=== PATIENT | male | born 1955 ===

== ENCOUNTER 2020-08-06 21:00 | Inpatient (IN) | payer MEDICARE ==
[2020-08-07] MEDS ORDERED: HALOPERIDOL LACTATE 5 MG/1 ML INJ IM ONE (05:30)
[2020-08-07] MEDS ORDERED: LORazepam 2 MG/ML VIAL IM ONE (05:30)
[2020-08-07] MEDS ORDERED: HALOPERIDOL LACTATE 5 MG/1 ML INJ ONE ×2 (05:31)
[2020-08-07] MEDS ORDERED: LORazepam 2 MG/ML VIAL ONE ×2 (05:31→05:33)
[2020-08-07] MEDS: metFORMIN 500 MG TAB PO SCH (20:33)
[2020-08-07] MEDS: DONEPEZIL 5 MG TAB PO SCH (21:32)
[2020-08-07] MEDS: traZODone 100 MG TAB PO SCH (21:33)
[2020-08-07] MEDS: clonazePAM 0.5 MG TAB PO SCH (21:33)
[2020-08-07] MEDS: OXcarbazepine 300 MG TAB PO SCH (21:50)
[2020-08-08 06:22] LABS: Basophils % (Auto) 0.7 % (0.0-1.8); Eosinophils # (Auto) 0.1 K/mm3 (0.0-0.4); Eosinophils % (Auto) 2.5 % (0.0-4.3); Hematocrit 36.3 % (35.5-45.6); Hemoglobin 12.9 gm/dl (11.8-15.2); Lymphocytes # (Auto) 1.7 K/mm3 (1.2-5.4); Lymphocytes % (Auto) 31.6 % (13.4-35.0); Mean Corpuscular HGB Conc 36 % (32-34); Mean Corpuscular Volume 99 fl (84-94); Monocytes # (Auto) 0.6 K/mm3 (0.0-0.8); Monocytes % (Auto) 10.5 % (0.0-7.3); Platelet Count 144 K/mm3 (140-440); Red Blood Count 3.65 M/mm3 (3.65-5.03); Red Cell Distribution Width 13.8 % (13.2-15.2)
[2020-08-08 06:46] LABS: Alanine Aminotransferase 9 units/L (7-56); Albumin 3.6 g/dL (3.9-5); Blood Urea Nitrogen 7 mg/dL (9-20); Calcium 9.2 mg/dL (8.4-10.2); Chol/HDL Ratio 4.56 %; HDL Cholesterol 37 mg/dL (40-59); Hemolysis Index 6; LDL Cholesterol,Direct 109 mg/dL (50-130)
[2020-08-08 06:47] LABS: BUN/Creatinine Ratio 12
[2020-08-08] MEDS: PROPRANOLOL 10 MG TAB PO SCH (10:34)
[2020-08-08] MEDS: metFORMIN 500 MG TAB PO SCH ×2 (10:34→16:54)
[2020-08-08] MEDS: clonazePAM 0.5 MG TAB PO SCH ×2 (10:34→21:06)
[2020-08-08] MEDS: SERTRALINE 100 MG TAB PO SCH (10:34)
[2020-08-08] MEDS: amLODIPine 10 MG TAB PO SCH (10:38)
[2020-08-08] MEDS: OXcarbazepine 300 MG TAB PO SCH ×2 (10:39→21:06)
--- NOTE | 2020-08-08 13:48 | History and Physical Report ---
GP History & Physical - History of Present Illness Date of admission: 08/07/20 Date of Examination: 08/08/20 Reason for Admission: Danger to self, Failure of Outpatient Treatment History of Present Illness: Sebastián Ny is a 64y/o male patient who was admitted to [facility] for a possible overdose and getting into an altercation with his family. The nurse note states the patient was with mild anxiety upon admission and expressed suicidal thoughts with no plan. During my interview with the patient, he is smiling. He says he was brought here because he "felt suicidal." When asked was he suicidal at present, the patient says "at times." He denies hallucinations of any kind. He denies any illicit drug use, alcohol or nicotine. The patient says he was diagnosed with depression in the past. He also denies a suicide attempt in the past. PAST PSYCHIATRIC HISTORY: Diagnoses: Depression Suicide attempts or Self-harm behavior: denies Prior psychiatric hospitalizations: [facility] Substance Abuse history: denies Previous psychiatric medications tried: zoloft Outpatient treatment: yes PAST MEDICAL HISTORY: HTN Family Psychiatric History: None reported or documented SOCIAL HISTORY Marital Status: Living Arrangements: family Employment Status: disable Access to guns/weapons: no Education: History of Abuse: denies Legal History: yes REVIEW OF SYSTEMS Constitutional: Negative for weight loss ENT: Negative for stridor Respiratory: Negative for cough or hemoptysis All other systems reviewed and are negative MENTAL STATUS General Appearance and Behavior: age appropriate, good eye contact, cooperative with questioning and polite Cooperation: Cooperative Psychomotor Behavior: within normal limits Mood: okay Affect and affective range: Congruent with stated mood Thought Process: Fluent/Logical and Goal-directed Thought Content: Within reality Speech: Normal volume and Regular rate and rhythm Intellectual Functioning: Average Suicidal Ideation: "at times" Homicidal Ideation: Denies HI Impulse Control: intact Insight and Judgment: Limited Memory/Cognition: Limited Attention: Normal Orientation: alert and oriented Diagnoses: schizoaffective Disorder, Bipolar Type Treatment Plan Patient will be admitted for inpatient psychiatric evaluation, medication adjustment and close monitoring The patient's behavior, mood, sleep and appetite will be closely monitored. Patient will be enrolled in individual and group therapeutic sessions and encouraged to attend. Patient will be provided with a safe and structured environment. Patient's physical health needs will be addressed by the Hospitalist. Hospitalist Consulted Labs including CBC, CMP, Lipid profile and Hemoglobin A1C ordered Social Assessment will be completed and the Sign Builder will work with patient and family to ensure a suitable and safe disposition Medication adjustment will be made as clinically indicated Usual Wellness Sikh/Preservation: - Start Melatonin 5 mg po QHS to promote circadian rhythm - Start B1 prophylaxis with 200 mg po for 5 days The patient agreed on the treatment plan, understood the risk, benefit, alternative treatment, potential consequence of no treatment, and gave informed consent. This is an acknowledgement statement that Sebastián Ny is a 64y/o male who requires inpatient psychiatric admission for treatment which could reasonably be expected to improve the patient's condition for irritability, aggression, and suicidal ideation. Estimated period of time patient will need to remain in the hospital: [7] Plan for post-hospital care: [out-patient] Legal Status: Voluntary Reaction to Hospitalization: Accepting Medications and Allergies Allergies Allergy/AdvReac Type Severity Reaction Status Date / Time No Known Allergies Allergy Unverified 08/07/20 17:15 Home Medications Medication Instructions Recorded Confirmed Last Taken Type KlonoPIN 0.5 mg PO BID 08/07/20 08/07/20 Unknown History Trileptal 300 mg PO BID 08/07/20 08/07/20 Unknown History Zoloft 100 mg PO DAILY 08/07/20 08/07/20 Unknown History amLODIPine 10 mg PO DAILY 08/07/20 08/07/20 Unknown History donepeziL 5 mg PO HS 08/07/20 08/07/20 Unknown History metFORMIN 1,000 mg PO BID 08/07/20 08/07/20 Unknown History propranoloL 30 mg PO DAILY 08/07/20 08/07/20 Unknown History traZODone 100 mg PO HS 08/07/20 08/07/20 Unknown History Active Meds: Active Medications Amlodipine Besylate (Amlodipine) 10 mg PO DAILY [facility] Last Admin: 08/08/20 10:38 Dose: 10 mg Documented by: Clonazepam (Klonopin) 0.5 mg PO BID [facility] Last Admin: 08/08/20 10:34 Dose: 0.5 mg Documented by: Donepezil HCl (Aricept) 5 mg PO QHS [facility] Last Admin: 08/07/20 21:32 Dose: 5 mg Documented by: Metformin HCl (Glucophage) 1,000 mg PO BIDDIAB [facility] Last Admin: 08/08/20 10:34 Dose: 1,000 mg Documented by: Oxcarbazepine (Trileptal) 300 mg PO BID [facility] Last Admin: 08/08/20 10:39 Dose: 300 mg Documented by: Propranolol HCl (Inderal) 30 mg PO DAILY [facility] Last Admin: 08/08/20 10:34 Dose: 30 mg Documented by: Sertraline HCl (Zoloft) 200 mg PO DAILY [facility] Last Admin: 08/08/20 10:34 Dose: 200 mg Documented by: Trazodone HCl (Desyrel) 100 mg PO QHS [facility] Last Admin: 08/07/20 21:33 Dose: 100 mg Documented by: Results - Results Labs/Vitals: Laboratory Last Values WBC 5.5 K/mm3 (4.5-11.0) 08/08/20 06:06 RBC 3.65 M/mm3 (3.65-5.03) 08/08/20 06:06 Hgb 12.9 gm/dl (11.8-15.2) 08/08/20 06:06 Hct 36.3 % (35.5-45.6) 08/08/20 06:06 MCV 99 fl (84-94) H 08/08/20 06:06 MCH 35 pg (28-32) H 08/08/20 06:06 MCHC 36 % (32-34) H 08/08/20 06:06 RDW 13.8 % (13.2-15.2) 08/08/20 06:06 Plt Count 144 K/mm3 (140-440) 08/08/20 06:06 Lymph % (Auto) 31.6 % (13.4-35.0) 08/08/20 06:06 [place] % (Auto) 10.5 % (0.0-7.3) H 08/08/20 06:06 Eos % (Auto) 2.5 % (0.0-4.3) 08/08/20 06:06 Baso % (Auto) 0.7 % (0.0-1.8) 08/08/20 06:06 Lymph # (Auto) 1.7 K/mm3 (1.2-5.4) 08/08/20 06:06 [place] # (Auto) 0.6 K/mm3 (0.0-0.8) 08/08/20 06:06 Eos # (Auto) 0.1 K/mm3 (0.0-0.4) 08/08/20 06:06 Baso # (Auto) 0.0 K/mm3 (0.0-0.1) 08/08/20 06:06 Seg Neutrophils % 54.7 % (40.0-70.0) 08/08/20 06:06 Seg Neutrophils # 3.0 K/mm3 (1.8-7.7) 08/08/20 06:06 Sodium 142 mmol/L (137-145) 08/08/20 06:06 Potassium 3.5 mmol/L (3.6-5.0) L 08/08/20 06:06 Chloride 104.6 mmol/L (98-107) 08/08/20 06:06 Carbon Dioxide 29 mmol/L (22-30) 08/08/20 06:06 Anion Gap 12 mmol/L 08/08/20 06:06 BUN 7 mg/dL (9-20) L 08/08/20 06:06 Creatinine 0.6 mg/dL (0.8-1.3) L 08/08/20 06:06 Estimated GFR > 60 ml/min 08/08/20 06:06 BUN/Creatinine Ratio 12 % 08/08/20 06:06 Glucose 102 mg/dL (75-100) H 08/08/20 06:06 POC Glucose 100 mg/dL (70-105) 08/08/20 08:45 Hemoglobin A1c 5.0 % (4-6) 08/08/20 06:06 Calcium 9.2 mg/dL (8.4-10.2) 08/08/20 06:06 Total Bilirubin 0.50 mg/dL (0.1-1.2) 08/08/20 06:06 AST 16 units/L (5-40) 08/08/20 06:06 ALT 9 units/L (7-56) 08/08/20 06:06 Alkaline Phosphatase 72 units/L (35-129) 08/08/20 06:06 Total Protein 6.6 g/dL (6.3-8.2) 08/08/20 06:06 Albumin 3.6 g/dL (3.9-5) L 08/08/20 06:06 Albumin/Globulin Ratio 1.2 % 08/08/20 06:06 Triglycerides 163 mg/dL (2-149) H 08/08/20 06:06 Cholesterol 169 mg/dL (50-199) 08/08/20 06:06 LDL Cholesterol Direct 109 mg/dL (50-130) 08/08/20 06:06 HDL Cholesterol 37 mg/dL (40-59) L 08/08/20 06:06 Cholesterol/HDL Ratio 4.56 % 08/08/20 06:06 TSH 2.200 mlU/mL (0.270-4.200) 08/08/20 06:06 Last Vital Signs Temp 97.3 F L 08/07/20 22:00 Pulse 79 08/08/20 10:38 Resp 18 08/07/20 22:00 BP 168/73 08/08/20 10:38 Pulse Ox 95 08/07/20 22:00 Physical Examination - Constitutional Vitals: Vital Signs Temp Pulse Resp BP Pulse Ox 97.3 F L 79 18 168/73 95 08/07/20 22:00 08/08/20 10:38 08/07/20 22:00 08/08/20 10:38 08/07/20 22:00 Temperature -Last 24 Hours Temperature 97.3 F Temperature 97.7 F Mental Status Exam - Vital signs Last Vital Signs Temp 97.3 F L 08/07/20 22:00 Pulse 79 08/08/20 10:38 Resp 18 08/07/20 22:00 BP 168/73 08/08/20 10:38 Pulse Ox 95 08/07/20 22:00 Physician Certification - Certification Statement Physician Certification Statement: This is an acknowledgement statement that SEBASTIÁN NY is a 64 year old M who requires inpatient psychiatric admission for treatment which could reasonably be expected to improve the patient's condition for Estimated period of time patient will need to remain in the hospital: [ ] Plan for post-hospital care: [ ]
[2020-08-08] MEDS: traZODone 100 MG TAB PO SCH (21:06)
[2020-08-08] MEDS: DONEPEZIL 5 MG TAB PO SCH (21:06)
--- NOTE | 2020-08-09 08:30 | Progress Note ---
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 The nurse note states the patient was present for some time but not fully aeb pt pacing unit. pt was encouraged/prompt to join group, but pt refused. pt stated "I have bipolar/anxiety. you all don't understand." During my interview with the patient he is awake in his room. He is a/o x 3. He is calm and cooperative. He says he's here because "I over medicated. Me and my girlfriend had some problems." He denies SI/HI or hallucinations of any kind. Nursing staff states the patient has been pacing, and not engaging in group. Reason for continued inpatient treatment: The patient has a recent suicidal attempt and has poor impulse control. Will continue to treat and monitor closely for effectiveness of medication to ensue a safe discharge. REVIEW OF SYSTEMS Constitutional: Negative for weight loss ENT: Negative for stridor Respiratory: Negative for cough or hemoptysis All other systems reviewed and are negative MENTAL STATUS General Appearance and Behavior: age appropriate, good eye contact, cooperative with questioning and polite Cooperation: Cooperative Psychomotor Behavior: within normal limits Mood: okay Affect and affective range: Congruent with stated mood Thought Process: Fluent/Logical and Goal-directed Thought Content: Within reality Speech: Normal volume and Regular rate and rhythm Intellectual Functioning: Average Suicidal Ideation: Denies Homicidal Ideation: Denies HI Impulse Control: Poor Insight and Judgment: Limited Memory/Cognition: Limited Attention: Normal Orientation: alert and oriented Diagnoses: schizoaffective Disorder, Bipolar Type Treatment Plan Patient will be admitted for inpatient psychiatric evaluation, medication adjustment and close monitoring The patient's behavior, mood, sleep and appetite will be closely monitored. Patient will be enrolled in individual and group therapeutic sessions and encouraged to attend. Patient will be provided with a safe and structured environment. Patient's physical health needs will be addressed by the Hospitalist. Hospitalist Consulted Labs including CBC, CMP, Lipid profile and Hemoglobin A1C ordered Social Assessment will be completed and the Admitting Coordinator will work with patient and family to ensure a suitable and safe disposition Medication adjustment will be made as clinically indicated Risperidone 0.25mg po BID Usual Wellness Pentecostalism/Preservation: - Start Melatonin 5 mg po QHS to promote circadian rhythm - Start B1 prophylaxis with 200 mg po for 5 days The patient agreed on the treatment plan, understood the risk, benefit, alternative treatment, potential consequence of no treatment, and gave informed consent. Estimated period of time patient will need to remain in the hospital: [4] Plan for post-hospital care: [out-patient] Medications and Allergies Allergies Allergy/AdvReac Type Severity Reaction Status Date / Time No Known Allergies Allergy Unverified 08/07/20 17:15 Home Medications Medication Instructions Recorded Confirmed Last Taken Type KlonoPIN 0.5 mg PO BID 08/07/20 08/07/20 Unknown History Trileptal 300 mg PO BID 08/07/20 08/07/20 Unknown History Zoloft 100 mg PO DAILY 08/07/20 08/07/20 Unknown History amLODIPine 10 mg PO DAILY 08/07/20 08/07/20 Unknown History donepeziL 5 mg PO HS 08/07/20 08/07/20 Unknown History metFORMIN 1,000 mg PO BID 08/07/20 08/07/20 Unknown History propranoloL 30 mg PO DAILY 08/07/20 08/07/20 Unknown History traZODone 100 mg PO HS 08/07/20 08/07/20 Unknown History Active Meds: Active Medications Amlodipine Besylate (Amlodipine) 10 mg PO DAILY [facility] Last Admin: 08/08/20 10:38 Dose: 10 mg Documented by: Clonazepam (Klonopin) 0.5 mg PO BID [facility] Last Admin: 08/08/20 21:06 Dose: 0.5 mg Documented by: Donepezil HCl (Aricept) 5 mg PO QHS [facility] Last Admin: 08/08/20 21:06 Dose: 5 mg Documented by: Metformin HCl (Glucophage) 1,000 mg PO BIDDIAB [facility] Last Admin: 08/08/20 16:54 Dose: 1,000 mg Documented by: Oxcarbazepine (Trileptal) 300 mg PO BID [facility] Last Admin: 08/08/20 21:06 Dose: 300 mg Documented by: Propranolol HCl (Inderal) 30 mg PO DAILY [facility] Last Admin: 08/08/20 10:34 Dose: 30 mg Documented by: Sertraline HCl (Zoloft) 200 mg PO DAILY [facility] Last Admin: 08/08/20 10:34 Dose: 200 mg Documented by: Trazodone HCl (Desyrel) 100 mg PO QHS [facility] Last Admin: 08/08/20 21:06 Dose: 100 mg Documented by: Results - Results Labs/Vitals: Laboratory Last Values WBC 5.5 K/mm3 (4.5-11.0) 08/08/20 06:06 RBC 3.65 M/mm3 (3.65-5.03) 08/08/20 06:06 Hgb 12.9 gm/dl (11.8-15.2) 08/08/20 06:06 Hct 36.3 % (35.5-45.6) 08/08/20 06:06 MCV 99 fl (84-94) H 08/08/20 06:06 MCH 35 pg (28-32) H 08/08/20 06:06 MCHC 36 % (32-34) H 08/08/20 06:06 RDW 13.8 % (13.2-15.2) 08/08/20 06:06 Plt Count 144 K/mm3 (140-440) 08/08/20 06:06 Lymph % (Auto) 31.6 % (13.4-35.0) 08/08/20 06:06 [place] % (Auto) 10.5 % (0.0-7.3) H 08/08/20 06:06 Eos % (Auto) 2.5 % (0.0-4.3) 08/08/20 06:06 Baso % (Auto) 0.7 % (0.0-1.8) 08/08/20 06:06 Lymph # (Auto) 1.7 K/mm3 (1.2-5.4) 08/08/20 06:06 [place] # (Auto) 0.6 K/mm3 (0.0-0.8) 08/08/20 06:06 Eos # (Auto) 0.1 K/mm3 (0.0-0.4) 08/08/20 06:06 Baso # (Auto) 0.0 K/mm3 (0.0-0.1) 08/08/20 06:06 Seg Neutrophils % 54.7 % (40.0-70.0) 08/08/20 06:06 Seg Neutrophils # 3.0 K/mm3 (1.8-7.7) 08/08/20 06:06 Sodium 142 mmol/L (137-145) 08/08/20 06:06 Potassium 3.5 mmol/L (3.6-5.0) L 08/08/20 06:06 Chloride 104.6 mmol/L (98-107) 08/08/20 06:06 Carbon Dioxide 29 mmol/L (22-30) 08/08/20 06:06 Anion Gap 12 mmol/L 08/08/20 06:06 BUN 7 mg/dL (9-20) L 08/08/20 06:06 Creatinine 0.6 mg/dL (0.8-1.3) L 08/08/20 06:06 Estimated GFR > 60 ml/min 08/08/20 06:06 BUN/Creatinine Ratio 12 % 08/08/20 06:06 Glucose 102 mg/dL (75-100) H 08/08/20 06:06 POC Glucose 91 mg/dL (70-105) 08/09/20 06:27 Hemoglobin A1c 5.0 % (4-6) 08/08/20 06:06 Calcium 9.2 mg/dL (8.4-10.2) 08/08/20 06:06 Total Bilirubin 0.50 mg/dL (0.1-1.2) 08/08/20 06:06 AST 16 units/L (5-40) 08/08/20 06:06 ALT 9 units/L (7-56) 08/08/20 06:06 Alkaline Phosphatase 72 units/L (35-129) 08/08/20 06:06 Total Protein 6.6 g/dL (6.3-8.2) 08/08/20 06:06 Albumin 3.6 g/dL (3.9-5) L 08/08/20 06:06 Albumin/Globulin Ratio 1.2 % 08/08/20 06:06 Triglycerides 163 mg/dL (2-149) H 08/08/20 06:06 Cholesterol 169 mg/dL (50-199) 08/08/20 06:06 LDL Cholesterol Direct 109 mg/dL (50-130) 08/08/20 06:06 HDL Cholesterol 37 mg/dL (40-59) L 08/08/20 06:06 Cholesterol/HDL Ratio 4.56 % 08/08/20 06:06 TSH 2.200 mlU/mL (0.270-4.200) 08/08/20 06:06 Last Vital Signs Temp 97.3 F L 08/08/20 22:00 Pulse 59 L 08/08/20 22:00 Resp 18 08/08/20 22:00 BP 129/94 08/08/20 22:00 Pulse Ox 95 08/08/20 22:00
[2020-08-09] MEDS: metFORMIN 500 MG TAB PO SCH ×2 (09:00→17:03)
[2020-08-09] MEDS: SERTRALINE 100 MG TAB PO SCH (09:01)
[2020-08-09] MEDS: amLODIPine 10 MG TAB PO SCH (09:01)
[2020-08-09] MEDS: PROPRANOLOL 10 MG TAB PO SCH (09:02)
[2020-08-09] MEDS: clonazePAM 0.5 MG TAB PO SCH ×2 (09:03→21:19)
[2020-08-09] MEDS: OXcarbazepine 300 MG TAB PO SCH ×2 (09:03→21:19)
[2020-08-09] MEDS: risperiDONE 0.25 MG TAB PO SCH ×2 (09:22→21:19)
[2020-08-09] MEDS: LOPERAMIDE 2 MG CAP PO PRN ×2 (17:53→21:18)
--- NOTE | 2020-08-09 18:02 | Consultation ---
History of Present Illness - Reason for Consult Consult date: 08/09/20 medical mx - History of Present Illness Sebastián Ny is a 64y/o male patient with a history of hypertension, diabetes mellitus, COPD who was admitted to [facility] for a possible overdose, feeling suicidal and getting into an altercation with his family. He denies any illicit drug use, alcohol or nicotine. The patient says he was diagnosed with depression in the past. He also denies a suicide attempt in the past. Patient is currently being managed at [facility] psych unit. Hospitalist service has been consulted for medical management. Past medical history: Hypertension, diabetes mellitus type 2 on oral hypoglycemic medications, COPD Past psychiatric history: Depression Past surgical history: right Ankle surgery, bilateral inguinal hernia repair Family history: Significant for congestive heart failure Social history: Lives with family. Positive for remote history of smoking REVIEW OF SYSTEMS Constitutional: no fever, no chills, no weight loss Ears, eyes, nose, mouth and throat: no nasal congestion, no nasal discharge, no sinus pressure, no vision change, no red eye. Neck: No neck pain or rigidity. Cardiovascular: No chest pain, no orthopnea, no palpitations, no leg swelling Respiratory: No shortness of breath, no cough, no congestion, no wheezing Gastrointestinal: no abdominal pain, no nausea, no vomiting Genitourinary : no dysuria, no hematuria Musculoskeletal: no joint swelling or muscle ache Integumentary: no rash, no pruritis Neurological: no parathesias, no numbness, no tingling Endocrine: no cold or heat intolerance, no polyuria or polydipsia Hematologic/Lymphatic: no easy bruising, no easy bleeding, no gland swelling Allergic/Immunologic: no urticaria, no angioedema. Physical exam: GENERAL: well-developed and well-nourished white male without any apparent distress HEENT: Normocephalic. Atraumatic. No conjunctival congestion or icterus. Patient has moist mucous membranes. NECK: Supple. Trachea midline. CHEST/LUNGS: Clear to auscultated bilaterally, breathing nonlabored. No wheezes crackles or rhonchi. HEART/CARDIOVASCULAR: Regular in rate and rhythm. S1 and S2 positive. ABDOMEN: Abdomen is soft, nontender. Patient has normal bowel sounds. SKIN: There is no rash. Warm and dry. NEURO: No focal motor deficit. Follows command. MUSCULOSKELETAL: No joint effusion or tenderness. EXTRIMITY: No edema, no cyanosis or clubbing. PSYCH: Cooperative. Assessment and plan Depression with suicidal ideation -Management per primary Other chronic medical issues: Hypertension, stable Diabetes mellitus type 2 on oral hypoglycemic medications COPD, stable Remote history of tobacco abuse Hypokalemia, replete DVT prophylaxis, patient is ambulatory -Continue current home medications, monitor blood pressure, continue supportive care -Patient appears to be clinically stable -Check BMP before discharge, replete electrolytes as needed -Call us back with any question or concern Medications and Allergies Allergies Allergy/AdvReac Type Severity Reaction Status Date / Time No Known Allergies Allergy Unverified 08/07/20 17:15 Home Medications Medication Instructions Recorded Confirmed Last Taken Type KlonoPIN 0.5 mg PO BID 08/07/20 08/07/20 Unknown History Trileptal 300 mg PO BID 08/07/20 08/07/20 Unknown History Zoloft 100 mg PO DAILY 08/07/20 08/07/20 Unknown History amLODIPine 10 mg PO DAILY 08/07/20 08/07/20 Unknown History donepeziL 5 mg PO HS 08/07/20 08/07/20 Unknown History metFORMIN 1,000 mg PO BID 08/07/20 08/07/20 Unknown History propranoloL 30 mg PO DAILY 08/07/20 08/07/20 Unknown History traZODone 100 mg PO HS 08/07/20 08/07/20 Unknown History Active Meds: Active Medications Amlodipine Besylate (Amlodipine) 10 mg PO DAILY [facility] Last Admin: 08/09/20 09:01 Dose: 10 mg Documented by: Clonazepam (Klonopin) 0.5 mg PO BID [facility] Last Admin: 08/09/20 09:03 Dose: 0.5 mg Documented by: Donepezil HCl (Aricept) 5 mg PO QHS [facility] Last Admin: 08/08/20 21:06 Dose: 5 mg Documented by: Loperamide HCl (Imodium) 2 mg PO Q2H PRN PRN Reason: Diarrhea Last Admin: 08/09/20 17:53 Dose: 2 mg Documented by: Metformin HCl (Glucophage) 1,000 mg PO BIDDIAB [facility] Last Admin: 08/09/20 17:03 Dose: 1,000 mg Documented by: Oxcarbazepine (Trileptal) 300 mg PO BID [facility] Last Admin: 08/09/20 09:03 Dose: 300 mg Documented by: Propranolol HCl (Inderal) 30 mg PO DAILY [facility] Last Admin: 08/09/20 09:02 Dose: 30 mg Documented by: Risperidone (Risperdal) 0.25 mg PO BID [facility] Last Admin: 08/09/20 09:22 Dose: 0.25 mg Documented by: Sertraline HCl (Zoloft) 200 mg PO DAILY [facility] Last Admin: 08/09/20 09:01 Dose: 200 mg Documented by: Trazodone HCl (Desyrel) 100 mg PO QHS [facility] Last Admin: 08/08/20 21:06 Dose: 100 mg Documented by: Exam - Constitutional Vitals: Temp Pulse Resp BP Pulse Ox 98.4 F 63 18 165/71 96 08/09/20 10:00 08/09/20 10:00 08/09/20 10:00 08/09/20 10:00 08/09/20 10:00 Results - Labs CBC & Chem 7: 08/08/20 06:06 08/08/20 06:06
[2020-08-09] MEDS: DONEPEZIL 5 MG TAB PO SCH (21:19)
[2020-08-09] MEDS: traZODone 100 MG TAB PO SCH (21:19)
--- NOTE | 2020-08-10 07:36 | Progress Note ---
Subjective Date of service: 08/10/20 Principal diagnosis: MDD w/o Psychiotic features Subjective Comment: Psych Nurse: Last evening the patient was pleasant and cooperative. He interacted appropriately with his peers and with staff. He presents as mildly anxious and made several trips to the nurses station requesting various things. He was medication compliant. Will continue to monitor patient for safety. Psych Progress HPI Today this morning, patient present with good insight, says the reason he was admitted to this facility was because he had taken a double dose of his usual medications for a time it was attributed to feeling bad today he endorses feeling much better as a matter fact he says her whole lot better, and thus is eating well and sleeping good says he feels like $1 million person even though he knows he can not spend a dime. Patient denies suicidal ideation, denies depressed mood and denies experiencing any auditory or visual hallucinations. Reason for continuing inpatient treatment: We will continue to monitor patient for mood stability and any medication side effects due to new medications Review of Symptoms: Constitutional: Negative for weight loss ENT: Negative for stridor Respiratory: Negative for cough or hemoptysis All other systems reviewed and are negative MENTAL STATUS EXAMINATION General Appearance and Behavior: Age appropriate, good hygiene, wearing appropriate clothes,, good eye contact Cooperation: Participating/engaged Psychomotor Behavior: Psychomotor normal Mood: I feel much better Affect and affective range: Congruent with mood Thought Process: logical Thought Content: Logical within reality Speech: Normal rate, volume and rythm Intellectual Functioning: Average Suicidal Ideation: SI Homicidal Ideation: Denies HI Impulse Control: unimpaired Insight and Judgment: Improved insight and judgment Memory: Normal Attention: Normal Orientation: Alert, Assessment and Plan - Patient Problems (1) MDD (major depressive disorder) Current Visit: Yes Status: Acute Treatment Plan Continue current medication Patient admitted for inpatient psychiatric evaluation, medication adjustment and close monitoring The patient's behavior, mood, sleep and appetite will be closely monitored. Patient enrolled in individual and group therapeutic sessions and encouraged to attend. Patient provided with a safe and structured environment. Patient's physical health needs will be addressed by the Hospitalist. Hospitalist Consulted Labs including CBC, CMP, Lipid profile and Hemoglobin A1C levels ordered for baseline reference Social Assessment will be completed and the Concrete Rubber will work with patient and family to ensure a suitable and safe disposition Medication adjustment will be made as clinically indicated Usual Wellness Jainism/Preservation: - Start Trazodone 50 mg po QHS & 50 mg po QHS PRN between 10 PM & 2 AM for insomnia - Start Melatonin 5 mg po QHS to promote circadian rhythm - Start [place]-3 for brain health, reduce impulsivity, and as adjunctive treatment for mood disorder, continue upon discharge given overall benefits. - Start B1 prophylaxis with 200 mg po for 5 days The patient agreed on the treatment plan, understood the risk, benefit, alternative treatment, potential consequence of no treatment, and gave informed consent. Initial Certification Inpatient psych services: I certify that the inpatient psychiatric services are required for treatment that could reasonably be expected to improve the patient's condition. Estimated days: 5 Post hospital care: primary care provider, psychiatric provider Assessment and Plan - Patient Problems (1) MDD (major depressive disorder) Current Visit: Yes Status: Acute Medications and Allergies Allergies Allergy/AdvReac Type Severity Reaction Status Date / Time No Known Allergies Allergy Unverified 08/07/20 17:15 Home Medications Medication Instructions Recorded Confirmed Last Taken Type KlonoPIN 0.5 mg PO BID 08/07/20 08/07/20 Unknown History Trileptal 300 mg PO BID 08/07/20 08/07/20 Unknown History Zoloft 100 mg PO DAILY 08/07/20 08/07/20 Unknown History amLODIPine 10 mg PO DAILY 08/07/20 08/07/20 Unknown History donepeziL 5 mg PO HS 08/07/20 08/07/20 Unknown History metFORMIN 1,000 mg PO BID 08/07/20 08/07/20 Unknown History propranoloL 30 mg PO DAILY 08/07/20 08/07/20 Unknown History traZODone 100 mg PO HS 08/07/20 08/07/20 Unknown History Active Meds: Active Medications Amlodipine Besylate (Amlodipine) 10 mg PO DAILY [facility] Last Admin: 08/09/20 09:01 Dose: 10 mg Documented by: Clonazepam (Klonopin) 0.5 mg PO BID [facility] Last Admin: 08/09/20 21:19 Dose: 0.5 mg Documented by: Donepezil HCl (Aricept) 5 mg PO QHS [facility] Last Admin: 08/09/20 21:19 Dose: 5 mg Documented by: Loperamide HCl (Imodium) 2 mg PO Q2H PRN PRN Reason: Diarrhea Last Admin: 08/09/20 21:18 Dose: 2 mg Documented by: Metformin HCl (Glucophage) 1,000 mg PO BIDDIAB [facility] Last Admin: 08/09/20 17:03 Dose: 1,000 mg Documented by: Oxcarbazepine (Trileptal) 300 mg PO BID [facility] Last Admin: 08/09/20 21:19 Dose: 300 mg Documented by: Propranolol HCl (Inderal) 30 mg PO DAILY [facility] Last Admin: 08/09/20 09:02 Dose: 30 mg Documented by: Risperidone (Risperdal) 0.25 mg PO BID [facility] Last Admin: 08/09/20 21:19 Dose: 0.25 mg Documented by: Sertraline HCl (Zoloft) 200 mg PO DAILY [facility] Last Admin: 08/09/20 09:01 Dose: 200 mg Documented by: Trazodone HCl (Desyrel) 100 mg PO QHS [facility] Last Admin: 08/09/20 21:19 Dose: 100 mg Documented by: Results - Results Labs/Vitals: Laboratory Last Values WBC 5.5 K/mm3 (4.5-11.0) 08/08/20 06:06 RBC 3.65 M/mm3 (3.65-5.03) 08/08/20 06:06 Hgb 12.9 gm/dl (11.8-15.2) 08/08/20 06:06 Hct 36.3 % (35.5-45.6) 08/08/20 06:06 MCV 99 fl (84-94) H 08/08/20 06:06 MCH 35 pg (28-32) H 08/08/20 06:06 MCHC 36 % (32-34) H 08/08/20 06:06 RDW 13.8 % (13.2-15.2) 08/08/20 06:06 Plt Count 144 K/mm3 (140-440) 08/08/20 06:06 Lymph % (Auto) 31.6 % (13.4-35.0) 08/08/20 06:06 [place] % (Auto) 10.5 % (0.0-7.3) H 08/08/20 06:06 Eos % (Auto) 2.5 % (0.0-4.3) 08/08/20 06:06 Baso % (Auto) 0.7 % (0.0-1.8) 08/08/20 06:06 Lymph # (Auto) 1.7 K/mm3 (1.2-5.4) 08/08/20 06:06 [place] # (Auto) 0.6 K/mm3 (0.0-0.8) 08/08/20 06:06 Eos # (Auto) 0.1 K/mm3 (0.0-0.4) 08/08/20 06:06 Baso # (Auto) 0.0 K/mm3 (0.0-0.1) 08/08/20 06:06 Seg Neutrophils % 54.7 % (40.0-70.0) 08/08/20 06:06 Seg Neutrophils # 3.0 K/mm3 (1.8-7.7) 08/08/20 06:06 Sodium 142 mmol/L (137-145) 08/08/20 06:06 Potassium 3.5 mmol/L (3.6-5.0) L 08/08/20 06:06 Chloride 104.6 mmol/L (98-107) 08/08/20 06:06 Carbon Dioxide 29 mmol/L (22-30) 08/08/20 06:06 Anion Gap 12 mmol/L 08/08/20 06:06 BUN 7 mg/dL (9-20) L 08/08/20 06:06 Creatinine 0.6 mg/dL (0.8-1.3) L 08/08/20 06:06 Estimated GFR > 60 ml/min 08/08/20 06:06 BUN/Creatinine Ratio 12 % 08/08/20 06:06 Glucose 102 mg/dL (75-100) H 08/08/20 06:06 POC Glucose 99 mg/dL (70-105) 08/10/20 07:46 Hemoglobin A1c 5.0 % (4-6) 08/08/20 06:06 Calcium 9.2 mg/dL (8.4-10.2) 08/08/20 06:06 Total Bilirubin 0.50 mg/dL (0.1-1.2) 08/08/20 06:06 AST 16 units/L (5-40) 08/08/20 06:06 ALT 9 units/L (7-56) 08/08/20 06:06 Alkaline Phosphatase 72 units/L (35-129) 08/08/20 06:06 Total Protein 6.6 g/dL (6.3-8.2) 08/08/20 06:06 Albumin 3.6 g/dL (3.9-5) L 08/08/20 06:06 Albumin/Globulin Ratio 1.2 % 08/08/20 06:06 Triglycerides 163 mg/dL (2-149) H 08/08/20 06:06 Cholesterol 169 mg/dL (50-199) 08/08/20 06:06 LDL Cholesterol Direct 109 mg/dL (50-130) 08/08/20 06:06 HDL Cholesterol 37 mg/dL (40-59) L 08/08/20 06:06 Cholesterol/HDL Ratio 4.56 % 08/08/20 06:06 TSH 2.200 mlU/mL (0.270-4.200) 08/08/20 06:06 Last Vital Signs Temp 97.7 F 08/09/20 19:31 Pulse 58 L 08/09/20 19:31 Resp 16 08/09/20 19:31 BP 147/69 08/09/20 19:31 Pulse Ox 95 08/09/20 19:31
[2020-08-10] MEDS: metFORMIN 500 MG TAB PO SCH ×2 (10:41→16:50)
[2020-08-10] MEDS: clonazePAM 0.5 MG TAB PO SCH ×2 (10:42→21:50)
[2020-08-10] MEDS: PROPRANOLOL 10 MG TAB PO SCH (10:42)
[2020-08-10] MEDS: amLODIPine 10 MG TAB PO SCH (10:42)
[2020-08-10] MEDS: SERTRALINE 100 MG TAB PO SCH (10:43)
[2020-08-10] MEDS: OXcarbazepine 300 MG TAB PO SCH ×2 (10:43→21:51)
[2020-08-10] MEDS: risperiDONE 0.25 MG TAB PO SCH ×2 (10:44→21:51)
[2020-08-10] MEDS: traZODone 100 MG TAB PO SCH (21:50)
[2020-08-10] MEDS: DONEPEZIL 5 MG TAB PO SCH (21:51)
--- NOTE | 2020-08-11 08:42 | Progress Note ---
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 pt was present and active for full duration. pt enjoyed this group aeb frequently laughing/smiling. pt socialized with peers and helped them provide the correct answers. pt participated in word search, unscramble the word, and hidden objects. pt was supportive of peers. Psych Progress HPI Patient seen today, reports speaking with her yesterday says the conversation went well, denies any having any intrusive thoughts today suicidal homicidal ideations, endorses good sleep hygiene, good appetite and also voiced participation in group activities. Reason for continuing inpatient treatment: We will continue to monitor patient for mood stability and any medication side effects due to new medications Review of Symptoms: Constitutional: Negative for weight loss ENT: Negative for stridor Respiratory: Negative for cough or hemoptysis All other systems reviewed and are negative MENTAL STATUS EXAMINATION General Appearance and Behavior: Age appropriate, good hygiene, wearing appr opriate clothes,, good eye contact Cooperation: Participating/engaged Psychomotor Behavior: Psychomotor normal Mood: I feel much better Affect and affective range: Congruent with mood Thought Process: logical Thought Content: Logical within reality Speech: Normal rate, volume and rythm Intellectual Functioning: Average Suicidal Ideation: SI Homicidal Ideation: Denies HI Impulse Control: unimpaired Insight and Judgment: Improved insight and judgment Memory: Normal Attention: Normal Orientation: Alert, Assessment and Plan - Patient Problems (1) MDD (major depressive disorder) Current Visit: Yes Status: Acute Treatment Plan Continue current medication Patient admitted for inpatient psychiatric evaluation, medication adjustment and close monitoring The patient's behavior, mood, sleep and appetite will be closely monitored. Patient enrolled in individual and group therapeutic sessions and encouraged to attend. Patient provided with a safe and structured environment. Patient's physical health needs will be addressed by the Hospitalist. Hospitalist Consulted Labs including CBC, CMP, Lipid profile and Hemoglobin A1C levels ordered for baseline reference Social Assessment will be completed and the Balance Recesser will work with patient and family to ensure a suitable and safe disposition Medication adjustment will be made as clinically indicated Usual Wellness Baptism/Preservation: - Start Trazodone 50 mg po QHS & 50 mg po QHS PRN between 10 PM & 2 AM for insomnia - Start Melatonin 5 mg po QHS to promote circadian rhythm - Start [place]-3 for brain health, reduce impulsivity, and as adjunctive treatment for mood disorder, continue upon discharge given overall benefits. - Start B1 prophylaxis with 200 mg po for 5 days The patient agreed on the treatment plan, understood the risk, benefit, alternative treatment, potential consequence of no treatment, and gave informed consent. Initial Certification Inpatient psych services: I certify that the inpatient psychiatric services are required for treatment that could reasonably be expected to improve the patient's condition. Estimated days: 4 Post hospital care: primary care provider, psychiatric provider Assessment and Plan - Patient Problems (1) MDD (major depressive disorder) Current Visit: Yes Status: Acute Medications and Allergies Allergies Allergy/AdvReac Type Severity Reaction Status Date / Time No Known Allergies Allergy Unverified 08/07/20 17:15 Home Medications Medication Instructions Recorded Confirmed Last Taken Type KlonoPIN 0.5 mg PO BID 08/07/20 08/07/20 Unknown History Trileptal 300 mg PO BID 08/07/20 08/07/20 Unknown History Zoloft 100 mg PO DAILY 08/07/20 08/07/20 Unknown History amLODIPine 10 mg PO DAILY 08/07/20 08/07/20 Unknown History donepeziL 5 mg PO HS 08/07/20 08/07/20 Unknown History metFORMIN 1,000 mg PO BID 08/07/20 08/07/20 Unknown History propranoloL 30 mg PO DAILY 08/07/20 08/07/20 Unknown History traZODone 100 mg PO HS 08/07/20 08/07/20 Unknown History Active Meds: Active Medications Amlodipine Besylate (Amlodipine) 10 mg PO DAILY [facility] Last Admin: 08/10/20 10:42 Dose: 10 mg Documented by: Clonazepam (Klonopin) 0.5 mg PO BID [facility] Last Admin: 08/10/20 21:50 Dose: 0.5 mg Documented by: Donepezil HCl (Aricept) 5 mg PO QHS [facility] Last Admin: 08/10/20 21:51 Dose: 5 mg Documented by: Loperamide HCl (Imodium) 2 mg PO Q2H PRN PRN Reason: Diarrhea Last Admin: 08/09/20 21:18 Dose: 2 mg Documented by: Metformin HCl (Glucophage) 1,000 mg PO BIDDIAB [facility] Last Admin: 08/10/20 16:50 Dose: 1,000 mg Documented by: Oxcarbazepine (Trileptal) 300 mg PO BID [facility] Last Admin: 08/10/20 21:51 Dose: 300 mg Documented by: Propranolol HCl (Inderal) 30 mg PO DAILY [facility] Last Admin: 08/10/20 10:42 Dose: 30 mg Documented by: Risperidone (Risperdal) 0.25 mg PO BID [facility] Last Admin: 08/10/20 21:51 Dose: 0.25 mg Documented by: Sertraline HCl (Zoloft) 200 mg PO DAILY [facility] Last Admin: 08/10/20 10:43 Dose: 200 mg Documented by: Trazodone HCl (Desyrel) 100 mg PO QHS [facility] Last Admin: 08/10/20 21:50 Dose: 100 mg Documented by: Results - Results Labs/Vitals: Laboratory Last Values WBC 5.5 K/mm3 (4.5-11.0) 08/08/20 06:06 RBC 3.65 M/mm3 (3.65-5.03) 08/08/20 06:06 Hgb 12.9 gm/dl (11.8-15.2) 08/08/20 06:06 Hct 36.3 % (35.5-45.6) 08/08/20 06:06 MCV 99 fl (84-94) H 08/08/20 06:06 MCH 35 pg (28-32) H 08/08/20 06:06 MCHC 36 % (32-34) H 08/08/20 06:06 RDW 13.8 % (13.2-15.2) 08/08/20 06:06 Plt Count 144 K/mm3 (140-440) 08/08/20 06:06 Lymph % (Auto) 31.6 % (13.4-35.0) 08/08/20 06:06 [place] % (Auto) 10.5 % (0.0-7.3) H 08/08/20 06:06 Eos % (Auto) 2.5 % (0.0-4.3) 08/08/20 06:06 Baso % (Auto) 0.7 % (0.0-1.8) 08/08/20 06:06 Lymph # (Auto) 1.7 K/mm3 (1.2-5.4) 08/08/20 06:06 [place] # (Auto) 0.6 K/mm3 (0.0-0.8) 08/08/20 06:06 Eos # (Auto) 0.1 K/mm3 (0.0-0.4) 08/08/20 06:06 Baso # (Auto) 0.0 K/mm3 (0.0-0.1) 08/08/20 06:06 Seg Neutrophils % 54.7 % (40.0-70.0) 08/08/20 06:06 Seg Neutrophils # 3.0 K/mm3 (1.8-7.7) 08/08/20 06:06 Sodium 142 mmol/L (137-145) 08/08/20 06:06 Potassium 3.5 mmol/L (3.6-5.0) L 08/08/20 06:06 Chloride 104.6 mmol/L (98-107) 08/08/20 06:06 Carbon Dioxide 29 mmol/L (22-30) 08/08/20 06:06 Anion Gap 12 mmol/L 08/08/20 06:06 BUN 7 mg/dL (9-20) L 08/08/20 06:06 Creatinine 0.6 mg/dL (0.8-1.3) L 08/08/20 06:06 Estimated GFR > 60 ml/min 08/08/20 06:06 BUN/Creatinine Ratio 12 % 08/08/20 06:06 Glucose 102 mg/dL (75-100) H 08/08/20 06:06 POC Glucose 86 mg/dL (70-105) 08/11/20 06:50 Hemoglobin A1c 5.0 % (4-6) 08/08/20 06:06 Calcium 9.2 mg/dL (8.4-10.2) 08/08/20 06:06 Total Bilirubin 0.50 mg/dL (0.1-1.2) 08/08/20 06:06 AST 16 units/L (5-40) 08/08/20 06:06 ALT 9 units/L (7-56) 08/08/20 06:06 Alkaline Phosphatase 72 units/L (35-129) 08/08/20 06:06 Total Protein 6.6 g/dL (6.3-8.2) 08/08/20 06:06 Albumin 3.6 g/dL (3.9-5) L 08/08/20 06:06 Albumin/Globulin Ratio 1.2 % 08/08/20 06:06 Triglycerides 163 mg/dL (2-149) H 08/08/20 06:06 Cholesterol 169 mg/dL (50-199) 08/08/20 06:06 LDL Cholesterol Direct 109 mg/dL (50-130) 08/08/20 06:06 HDL Cholesterol 37 mg/dL (40-59) L 08/08/20 06:06 Cholesterol/HDL Ratio 4.56 % 08/08/20 06:06 TSH 2.200 mlU/mL (0.270-4.200) 08/08/20 06:06 Last Vital Signs Temp 98.4 F 08/11/20 08:25 Pulse 69 08/11/20 08:25 Resp 18 08/11/20 08:25 BP 148/77 08/11/20 08:25 Pulse Ox 95 08/11/20 08:25
[2020-08-11] MEDS: metFORMIN 500 MG TAB PO SCH ×2 (08:45→16:45)
[2020-08-11] MEDS: SERTRALINE 100 MG TAB PO SCH (09:16)
[2020-08-11] MEDS: amLODIPine 10 MG TAB PO SCH (09:16)
[2020-08-11] MEDS: clonazePAM 0.5 MG TAB PO SCH ×2 (09:16→21:10)
[2020-08-11] MEDS: risperiDONE 0.25 MG TAB PO SCH ×2 (09:16→21:10)
[2020-08-11] MEDS: PROPRANOLOL 10 MG TAB PO SCH (09:17)
[2020-08-11] MEDS: OXcarbazepine 300 MG TAB PO SCH ×2 (09:18→21:10)
[2020-08-11] MEDS: traZODone 100 MG TAB PO SCH (21:10)
[2020-08-11] MEDS: DONEPEZIL 5 MG TAB PO SCH (21:10)
[2020-08-12] MEDS: metFORMIN 500 MG TAB PO SCH ×2 (07:54→16:16)
--- NOTE | 2020-08-12 08:48 | Progress Note ---
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 A&OX4. Pt reports he walks to exercise his joints and he has done about 2 miles today. Pt walked to the senior underwriter and sincerely apologized for the event of the night of his admission when he was threatening and cursing, "I was not in my right mind that day. I was very miserable," he stated. Denies pain, SI or HI. Very pleasant. No behavioral issue or acute distress observed. Will continue to monitor. Pt. participated in process group and made adequate progress. Pt presented as being alert and oriented. Pt made eye contact. Fabricio to verbalize needs and discuss content clearly. Mood is calm, affect is congruent with mood, and cooperative behaviors. No irritation, aggression, or agitation noted. No SI or HI expressed. No overt signs of psychosis. Pt provided helpful feedback to group members. Psych Progress HPI Mr. Lowery was seen in the hallway, walking down the carr patient reports he likes to exercise something he normally does at home as he usually enjoys 2 to 3 miles walking just to stay feet. Patient endorses looking forward to going home and being reunited again back with his family. He denies any suicidal or homicidal thoughts and also denies any depressed mood Reason for continuing inpatient treatment: Plan for safety discharge Review of Symptoms: Constitutional: Negative for weight loss ENT: Negative for stridor Respiratory: Negative for cough or hemoptysis All other systems reviewed and are negative MENTAL STATUS EXAMINATION General Appearance and Behavior: Age appropriate, good hygiene, wearing appropriate clothes,, good eye contact Cooperation: Participating/engaged Psychomotor Behavior: Psychomotor normal Mood: I feel much better Affect and affective range: Congruent with mood Thought Process: logical Thought Content: Logical within reality Speech: Normal rate, volume and rythm Intellectual Functioning: Average Suicidal Ideation: Denies Homicidal Ideation: Denies HI Impulse Control: unimpaired Insight and Judgment: Improved insight and judgment Memory: Normal Attention: Normal Orientation: Alert, Assessment and Plan - Patient Problems (1) MDD (major depressive disorder) Current Visit: Yes Status: Acute Treatment Plan Continue current medication Patient admitted for inpatient psychiatric evaluation, medication adjustment and close monitoring The patient's behavior, mood, sleep and appetite will be closely monitored. Patient enrolled in individual and group therapeutic sessions and encouraged to attend. Patient provided with a safe and structured environment. Patient's physical health needs will be addressed by the Hospitalist. Hospitalist Consulted Labs including CBC, CMP, Lipid profile and Hemoglobin A1C levels ordered for baseline reference Social Assessment will be completed and the Liner Machine Operator Helper will work with patient and family to ensure a suitable and safe disposition Medication adjustment will be made as clinically indicated Usual Wellness Hinduism/Preservation: - Start Trazodone 50 mg po QHS & 50 mg po QHS PRN between 10 PM & 2 AM for insomnia - Start Melatonin 5 mg po QHS to promote circadian rhythm - Start [place]-3 for brain health, reduce impulsivity, and as adjunctive treatment for mood disorder, continue upon discharge given overall benefits. - Start B1 prophylaxis with 200 mg po for 5 days The patient agreed on the treatment plan, understood the risk, benefit, alternative treatment, potential consequence of no treatment, and gave informed consent. Initial Certification Inpatient psych services: I certify that the inpatient psychiatric services are required for treatment that could reasonably be expected to improve the patient's condition. Estimated days: 3 Post hospital care: primary care provider, psychiatric provider Assessment and Plan - Patient Problems (1) MDD (major depressive disorder) Current Visit: Yes Status: Acute Medications and Allergies Allergies Allergy/AdvReac Type Severity Reaction Status Date / Time No Known Allergies Allergy Unverified 08/07/20 17:15 Home Medications Medication Instructions Recorded Confirmed Last Taken Type KlonoPIN 0.5 mg PO BID 08/07/20 08/07/20 Unknown History Trileptal 300 mg PO BID 08/07/20 08/07/20 Unknown History Zoloft 100 mg PO DAILY 08/07/20 08/07/20 Unknown History amLODIPine 10 mg PO DAILY 08/07/20 08/07/20 Unknown History donepeziL 5 mg PO HS 08/07/20 08/07/20 Unknown History metFORMIN 1,000 mg PO BID 08/07/20 08/07/20 Unknown History propranoloL 30 mg PO DAILY 08/07/20 08/07/20 Unknown History traZODone 100 mg PO HS 08/07/20 08/07/20 Unknown History Active Meds: Active Medications Amlodipine Besylate (Amlodipine) 10 mg PO DAILY REGLA Last Admin: 08/11/20 09:16 Dose: 10 mg Documented by: Clonazepam (Klonopin) 0.5 mg PO BID [facility] Last Admin: 08/11/20 21:10 Dose: 0.5 mg Documented by: Donepezil HCl (Aricept) 5 mg PO QHS [facility] Last Admin: 08/11/20 21:10 Dose: 5 mg Documented by: Loperamide HCl (Imodium) 2 mg PO Q2H PRN PRN Reason: Diarrhea Last Admin: 08/09/20 21:18 Dose: 2 mg Documented by: Metformin HCl (Glucophage) 1,000 mg PO BIDDIAB [facility] Last Admin: 08/12/20 07:54 Dose: 1,000 mg Documented by: Oxcarbazepine (Trileptal) 300 mg PO BID [facility] Last Admin: 08/11/20 21:10 Dose: 300 mg Documented by: Propranolol HCl (Inderal) 30 mg PO DAILY [facility] Last Admin: 08/11/20 09:17 Dose: 30 mg Documented by: Risperidone (Risperdal) 0.25 mg PO BID [facility] Last Admin: 08/11/20 21:10 Dose: 0.25 mg Documented by: Sertraline HCl (Zoloft) 200 mg PO DAILY [facility] Last Admin: 08/11/20 09:16 Dose: 200 mg Documented by: Trazodone HCl (Desyrel) 100 mg PO QHS [facility] Last Admin: 08/11/20 21:10 Dose: 100 mg Documented by: Results - Results Labs/Vitals: Laboratory Last Values WBC 5.5 K/mm3 (4.5-11.0) 08/08/20 06:06 RBC 3.65 M/mm3 (3.65-5.03) 08/08/20 06:06 Hgb 12.9 gm/dl (11.8-15.2) 08/08/20 06:06 Hct 36.3 % (35.5-45.6) 08/08/20 06:06 MCV 99 fl (84-94) H 08/08/20 06:06 MCH 35 pg (28-32) H 08/08/20 06:06 MCHC 36 % (32-34) H 08/08/20 06:06 RDW 13.8 % (13.2-15.2) 08/08/20 06:06 Plt Count 144 K/mm3 (140-440) 08/08/20 06:06 Lymph % (Auto) 31.6 % (13.4-35.0) 08/08/20 06:06 [place] % (Auto) 10.5 % (0.0-7.3) H 08/08/20 06:06 Eos % (Auto) 2.5 % (0.0-4.3) 08/08/20 06:06 Baso % (Auto) 0.7 % (0.0-1.8) 08/08/20 06:06 Lymph # (Auto) 1.7 K/mm3 (1.2-5.4) 08/08/20 06:06 [place] # (Auto) 0.6 K/mm3 (0.0-0.8) 08/08/20 06:06 Eos # (Auto) 0.1 K/mm3 (0.0-0.4) 08/08/20 06:06 Baso # (Auto) 0.0 K/mm3 (0.0-0.1) 08/08/20 06:06 Seg Neutrophils % 54.7 % (40.0-70.0) 08/08/20 06:06 Seg Neutrophils # 3.0 K/mm3 (1.8-7.7) 08/08/20 06:06 Sodium 142 mmol/L (137-145) 08/08/20 06:06 Potassium 3.5 mmol/L (3.6-5.0) L 08/08/20 06:06 Chloride 104.6 mmol/L (98-107) 08/08/20 06:06 Carbon Dioxide 29 mmol/L (22-30) 08/08/20 06:06 Anion Gap 12 mmol/L 08/08/20 06:06 BUN 7 mg/dL (9-20) L 08/08/20 06:06 Creatinine 0.6 mg/dL (0.8-1.3) L 08/08/20 06:06 Estimated GFR > 60 ml/min 08/08/20 06:06 BUN/Creatinine Ratio 12 % 08/08/20 06:06 Glucose 102 mg/dL (75-100) H 08/08/20 06:06 POC Glucose 89 mg/dL (70-105) 08/12/20 07:35 Hemoglobin A1c 5.0 % (4-6) 08/08/20 06:06 Calcium 9.2 mg/dL (8.4-10.2) 08/08/20 06:06 Total Bilirubin 0.50 mg/dL (0.1-1.2) 08/08/20 06:06 AST 16 units/L (5-40) 08/08/20 06:06 ALT 9 units/L (7-56) 08/08/20 06:06 Alkaline Phosphatase 72 units/L (35-129) 08/08/20 06:06 Total Protein 6.6 g/dL (6.3-8.2) 08/08/20 06:06 Albumin 3.6 g/dL (3.9-5) L 08/08/20 06:06 Albumin/Globulin Ratio 1.2 % 08/08/20 06:06 Triglycerides 163 mg/dL (2-149) H 08/08/20 06:06 Cholesterol 169 mg/dL (50-199) 08/08/20 06:06 LDL Cholesterol Direct 109 mg/dL (50-130) 08/08/20 06:06 HDL Cholesterol 37 mg/dL (40-59) L 08/08/20 06:06 Cholesterol/HDL Ratio 4.56 % 08/08/20 06:06 TSH 2.200 mlU/mL (0.270-4.200) 08/08/20 06:06 Last Vital Signs Temp 97.6 F 08/12/20 08:03 Pulse 70 08/12/20 08:03 Resp 18 08/12/20 08:03 BP 156/73 08/12/20 08:03 Pulse Ox 97 08/12/20 08:03
[2020-08-12] MEDS: PROPRANOLOL 10 MG TAB PO SCH (09:01)
[2020-08-12] MEDS: amLODIPine 10 MG TAB PO SCH (09:01)
[2020-08-12] MEDS: SERTRALINE 100 MG TAB PO SCH (09:01)
[2020-08-12] MEDS: risperiDONE 0.25 MG TAB PO SCH ×2 (09:02→21:18)
[2020-08-12] MEDS: clonazePAM 0.5 MG TAB PO SCH ×2 (09:02→21:17)
[2020-08-12] MEDS: LOPERAMIDE 2 MG CAP PO PRN (09:58)
[2020-08-12] MEDS: OXcarbazepine 300 MG TAB PO SCH ×2 (09:58→21:17)
[2020-08-12] MEDS ORDERED: POTASSIUM CHLORIDE ER 10 MEQ TAB PO ONE (15:13)
[2020-08-12] MEDS: traZODone 100 MG TAB PO SCH (21:18)
[2020-08-12] MEDS: DONEPEZIL 5 MG TAB PO SCH (21:18)
--- NOTE | 2020-08-13 07:37 | Progress Note ---
Subjective Date of service: 08/13/20 Principal diagnosis: MDD w/o Psychiotic features Subjective Comment: Psych Nurse:Patient was pleasant and cooperative this evening. He smiles often. He walked around the unit for exercise stating he usually walks 2 miles daily. He denies si/hi/ah/vh. He states he is having difficulty going to sleep from excitement about discharge tomorrow. Patient was medication compliant. Will continue to monitor patient for safety. Psych Progress HPI Patient is seen this AM, reports looking forward to being discharged today, says he is excited and cant wait to be home today. Reason for continuing inpatient treatment: Plan for safety discharge Review of Symptoms: Constitutional: Negative for weight loss ENT: Negative for stridor Respiratory: Negative for cough or hemoptysis All other systems reviewed and are negative MENTAL STATUS EXAMINATION General Appearance and Behavior: Age appropriate, good hygiene, wearing appropriate clothes,, good eye contact Cooperation: Participating/engaged Psychomotor Behavior: Psychomotor normal Mood: I feel much better Affect and affective range: Congruent with mood Thought Process: logical Thought Content: Logical within reality Speech: Normal rate, volume and rythm Intellectual Functioning: Average Suicidal Ideation: Denies Homicidal Ideation: Denies HI Impulse Control: unimpaired Insight and Judgment: Improved insight and judgment Memory: Normal Attention: Normal Orientation: Alert, Assessment and Plan - Patient Problems (1) MDD (major depressive disorder) Current Visit: Yes Status: Acute Treatment Plan Continue current medication Patient admitted for inpatient psychiatric evaluation, medication adjustment and close monitoring The patient's behavior, mood, sleep and appetite will be closely monitored. Patient enrolled in individual and group therapeutic sessions and encouraged to attend. Patient provided with a safe and structured environment. Patient's physical health needs will be addressed by the Hospitalist. Hospitalist Consulted Labs including CBC, CMP, Lipid profile and Hemoglobin A1C levels ordered for baseline reference Social Assessment will be completed and the Tentering Machine Feeder will work with patient and family to ensure a suitable and safe disposition Medication adjustment will be made as clinically indicated Usual Wellness Spiritism/Preservation: - Start Trazodone 50 mg po QHS & 50 mg po QHS PRN between 10 PM & 2 AM for insomnia - Start Melatonin 5 mg po QHS to promote circadian rhythm - Start [place]-3 for brain health, reduce impulsivity, and as adjunctive treatment for mood disorder, continue upon discharge given overall benefits. - Start B1 prophylaxis with 200 mg po for 5 days The patient agreed on the treatment plan, understood the risk, benefit, alternative treatment, potential consequence of no treatment, and gave informed consent. Initial Certification Inpatient psych services: I certify that the inpatient psychiatric services are required for treatment that could reasonably be expected to improve the patient's condition. Estimated days:2 Post hospital care: primary care provider, psychiatric provider Assessment and Plan - Patient Problems (1) MDD (major depressive disorder) Current Visit: Yes Status: Acute Medications and Allergies Allergies Allergy/AdvReac Type Severity Reaction Status Date / Time No Known Allergies Allergy Unverified 08/07/20 17:15 Home Medications Medication Instructions Recorded Confirmed Last Taken Type Trileptal 300 mg PO BID 08/07/20 08/07/20 Unknown History Zoloft 100 mg PO DAILY 08/07/20 08/07/20 Unknown History amLODIPine 10 mg PO DAILY 08/07/20 08/07/20 Unknown History donepeziL 5 mg PO HS 08/07/20 08/07/20 Unknown History metFORMIN 1,000 mg PO BID 08/07/20 08/07/20 Unknown History propranoloL 30 mg PO DAILY 08/07/20 08/07/20 Unknown History Loperamide [Imodium] 2 mg PO Q2H PRN capsule 08/13/20 Unknown Rx OXcarbazepine [Trileptal] 300 mg PO BID #60 tablet 08/13/20 Unknown Rx Sertraline [Zoloft] 200 mg PO DAILY #30 tablet 08/13/20 Unknown Rx amLODIPine 10 mg PO DAILY tablet 08/13/20 Unknown Rx clonazePAM [KlonoPIN] 0.5 mg PO QAM #10 tablet 08/13/20 Unknown Rx donepeziL [Aricept] 5 mg PO QHS tablet 08/13/20 Unknown Rx metFORMIN [Glucophage] 1,000 mg PO BIDDIAB tablet 08/13/20 Unknown Rx propranoloL [Inderal] 30 mg PO DAILY tablet 08/13/20 Unknown Rx risperiDONE [RisperDAL] 0.5 mg PO BID #60 tablet 08/13/20 Unknown Rx traZODone [Desyrel] 50 mg PO QHS #30 tablet 08/13/20 Unknown Rx Active Meds: Active Medications Amlodipine Besylate (Amlodipine) 10 mg PO DAILY REGLA Last Admin: 08/12/20 09:01 Dose: 10 mg Documented by: Clonazepam (Klonopin) 0.5 mg PO BID [facility] Last Admin: 08/12/20 21:17 Dose: 0.5 mg Documented by: Donepezil HCl (Aricept) 5 mg PO QHS [facility] Last Admin: 08/12/20 21:18 Dose: 5 mg Documented by: Loperamide HCl (Imodium) 2 mg PO Q2H PRN PRN Reason: Diarrhea Last Admin: 08/12/20 09:58 Dose: 2 mg Documented by: Metformin HCl (Glucophage) 1,000 mg PO BIDDIAB [facility] Last Admin: 08/12/20 16:16 Dose: 1,000 mg Documented by: Oxcarbazepine (Trileptal) 300 mg PO BID [facility] Last Admin: 08/12/20 21:17 Dose: 300 mg Documented by: Propranolol HCl (Inderal) 30 mg PO DAILY [facility] Last Admin: 08/12/20 09:01 Dose: 30 mg Documented by: Risperidone (Risperdal) 0.25 mg PO BID [facility] Last Admin: 08/12/20 21:18 Dose: 0.25 mg Documented by: Sertraline HCl (Zoloft) 200 mg PO DAILY [facility] Last Admin: 08/12/20 09:01 Dose: 200 mg Documented by: Trazodone HCl (Desyrel) 100 mg PO QHS [facility] Last Admin: 08/12/20 21:18 Dose: 100 mg Documented by: Results - Results Labs/Vitals: Laboratory Last Values WBC 5.5 K/mm3 (4.5-11.0) 08/08/20 06:06 RBC 3.65 M/mm3 (3.65-5.03) 08/08/20 06:06 Hgb 12.9 gm/dl (11.8-15.2) 08/08/20 06:06 Hct 36.3 % (35.5-45.6) 08/08/20 06:06 MCV 99 fl (84-94) H 08/08/20 06:06 MCH 35 pg (28-32) H 08/08/20 06:06 MCHC 36 % (32-34) H 08/08/20 06:06 RDW 13.8 % (13.2-15.2) 08/08/20 06:06 Plt Count 144 K/mm3 (140-440) 08/08/20 06:06 Lymph % (Auto) 31.6 % (13.4-35.0) 08/08/20 06:06 [place] % (Auto) 10.5 % (0.0-7.3) H 08/08/20 06:06 Eos % (Auto) 2.5 % (0.0-4.3) 08/08/20 06:06 Baso % (Auto) 0.7 % (0.0-1.8) 08/08/20 06:06 Lymph # (Auto) 1.7 K/mm3 (1.2-5.4) 08/08/20 06:06 [place] # (Auto) 0.6 K/mm3 (0.0-0.8) 08/08/20 06:06 Eos # (Auto) 0.1 K/mm3 (0.0-0.4) 08/08/20 06:06 Baso # (Auto) 0.0 K/mm3 (0.0-0.1) 08/08/20 06:06 Seg Neutrophils % 54.7 % (40.0-70.0) 08/08/20 06:06 Seg Neutrophils # 3.0 K/mm3 (1.8-7.7) 08/08/20 06:06 Sodium 142 mmol/L (137-145) 08/08/20 06:06 Potassium 3.5 mmol/L (3.6-5.0) L 08/08/20 06:06 Chloride 104.6 mmol/L (98-107) 08/08/20 06:06 Carbon Dioxide 29 mmol/L (22-30) 08/08/20 06:06 Anion Gap 12 mmol/L 08/08/20 06:06 BUN 7 mg/dL (9-20) L 08/08/20 06:06 Creatinine 0.6 mg/dL (0.8-1.3) L 08/08/20 06:06 Estimated GFR > 60 ml/min 08/08/20 06:06 BUN/Creatinine Ratio 12 % 08/08/20 06:06 Glucose 102 mg/dL (75-100) H 08/08/20 06:06 POC Glucose 89 mg/dL (70-105) 08/12/20 07:35 Hemoglobin A1c 5.0 % (4-6) 08/08/20 06:06 Calcium 9.2 mg/dL (8.4-10.2) 08/08/20 06:06 Total Bilirubin 0.50 mg/dL (0.1-1.2) 08/08/20 06:06 AST 16 units/L (5-40) 08/08/20 06:06 ALT 9 units/L (7-56) 08/08/20 06:06 Alkaline Phosphatase 72 units/L (35-129) 08/08/20 06:06 Total Protein 6.6 g/dL (6.3-8.2) 08/08/20 06:06 Albumin 3.6 g/dL (3.9-5) L 08/08/20 06:06 Albumin/Globulin Ratio 1.2 % 08/08/20 06:06 Triglycerides 163 mg/dL (2-149) H 08/08/20 06:06 Cholesterol 169 mg/dL (50-199) 08/08/20 06:06 LDL Cholesterol Direct 109 mg/dL (50-130) 08/08/20 06:06 HDL Cholesterol 37 mg/dL (40-59) L 08/08/20 06:06 Cholesterol/HDL Ratio 4.56 % 08/08/20 06:06 TSH 2.200 mlU/mL (0.270-4.200) 08/08/20 06:06 Last Vital Signs Temp 97.5 F L 08/12/20 19:43 Pulse 54 L 08/12/20 19:43 Resp 16 08/12/20 19:43 BP 137/70 08/12/20 19:43 Pulse Ox 94 08/12/20 19:43
--- NOTE | 2020-08-13 07:44 | Discharge Summary ---
Providers - Providers Date of Admission: 08/07/20 17:41 Date of discharge: 08/13/20 Attending physician: LEONARDO MARTIN MD 08/07/20 18:14 Consult to Physician [CONS] Routine Comment: Consulting Provider: BECKY COTTO Physician Instructions: Reason For Exam: manage medical conditions Primary care physician: CROP FARMERS Hospitalization Reason for admission: Danger to self Condition: Good Hospital course: The patient was provided inpatient psychiatric treatment with safe and supportive environment, group/individual therapy, psychiatric medication, medication adjustment, adverse effect monitor, medical evaluation, medical treatment, social service assessment, social support meeting, placement a ssessment and psycho-education. The patients mood, cognition, behavior, motivation, compliance to treatment and appreciation on family/social support are improved and stabilized. At the time of discharge, the patient had no suicidal ideas, no homicidal ideas, no aggressive thoughts, no endangering behavior and no debilitating adverse effects. The patient agareed on the treatment plan, understood the risk, benefit, alternative treatment, potential consequence of no treatment, and gave informed consent. Disposition: - TO HOME OR SELFCARE Allergies/Adverse Reactions: Allergies No Known Allergies Allergy (Unverified 08/07/20 17:15) Vital Signs: Last Vital Signs Temp 97.5 F L 08/12/20 19:43 Pulse 54 L 08/12/20 19:43 Resp 16 08/12/20 19:43 BP 137/70 08/12/20 19:43 Pulse Ox 94 08/12/20 19:43 Last Lab: Laboratory Last Values WBC 5.5 K/mm3 (4.5-11.0) 08/08/20 06:06 RBC 3.65 M/mm3 (3.65-5.03) 08/08/20 06:06 Hgb 12.9 gm/dl (11.8-15.2) 08/08/20 06:06 Hct 36.3 % (35.5-45.6) 08/08/20 06:06 MCV 99 fl (84-94) H 08/08/20 06:06 MCH 35 pg (28-32) H 08/08/20 06:06 MCHC 36 % (32-34) H 08/08/20 06:06 RDW 13.8 % (13.2-15.2) 08/08/20 06:06 Plt Count 144 K/mm3 (140-440) 08/08/20 06:06 Lymph % (Auto) 31.6 % (13.4-35.0) 08/08/20 06:06 [place] % (Auto) 10.5 % (0.0-7.3) H 08/08/20 06:06 Eos % (Auto) 2.5 % (0.0-4.3) 08/08/20 06:06 Baso % (Auto) 0.7 % (0.0-1.8) 08/08/20 06:06 Lymph # (Auto) 1.7 K/mm3 (1.2-5.4) 08/08/20 06:06 [place] # (Auto) 0.6 K/mm3 (0.0-0.8) 08/08/20 06:06 Eos # (Auto) 0.1 K/mm3 (0.0-0.4) 08/08/20 06:06 Baso # (Auto) 0.0 K/mm3 (0.0-0.1) 08/08/20 06:06 Seg Neutrophils % 54.7 % (40.0-70.0) 08/08/20 06:06 Seg Neutrophils # 3.0 K/mm3 (1.8-7.7) 08/08/20 06:06 Sodium 142 mmol/L (137-145) 08/08/20 06:06 Potassium 3.5 mmol/L (3.6-5.0) L 08/08/20 06:06 Chloride 104.6 mmol/L (98-107) 08/08/20 06:06 Carbon Dioxide 29 mmol/L (22-30) 08/08/20 06:06 Anion Gap 12 mmol/L 08/08/20 06:06 BUN 7 mg/dL (9-20) L 08/08/20 06:06 Creatinine 0.6 mg/dL (0.8-1.3) L 08/08/20 06:06 Estimated GFR > 60 ml/min 08/08/20 06:06 BUN/Creatinine Ratio 12 % 08/08/20 06:06 Glucose 102 mg/dL (75-100) H 08/08/20 06:06 POC Glucose 89 mg/dL (70-105) 08/12/20 07:35 Hemoglobin A1c 5.0 % (4-6) 08/08/20 06:06 Calcium 9.2 mg/dL (8.4-10.2) 08/08/20 06:06 Total Bilirubin 0.50 mg/dL (0.1-1.2) 08/08/20 06:06 AST 16 units/L (5-40) 08/08/20 06:06 ALT 9 units/L (7-56) 08/08/20 06:06 Alkaline Phosphatase 72 units/L (35-129) 08/08/20 06:06 Total Protein 6.6 g/dL (6.3-8.2) 08/08/20 06:06 Albumin 3.6 g/dL (3.9-5) L 08/08/20 06:06 Albumin/Globulin Ratio 1.2 % 08/08/20 06:06 Triglycerides 163 mg/dL (2-149) H 08/08/20 06:06 Cholesterol 169 mg/dL (50-199) 08/08/20 06:06 LDL Cholesterol Direct 109 mg/dL (50-130) 08/08/20 06:06 HDL Cholesterol 37 mg/dL (40-59) L 08/08/20 06:06 Cholesterol/HDL Ratio 4.56 % 08/08/20 06:06 TSH 2.200 mlU/mL (0.270-4.200) 08/08/20 06:06 - Discharge Diagnoses (1) MDD (major depressive disorder) Status: Acute Core Measure Documentation - Palliative Care Palliative Care/ Comfort Measures: Not Applicable - Core Measures Any of the following diagnoses?: none Exam - Constitutional Vitals: Temp Pulse Resp BP Pulse Ox 97.5 F L 54 L 16 137/70 94 08/12/20 19:43 08/12/20 19:43 08/12/20 19:43 08/12/20 19:43 08/12/20 19:43 General appearance: Present: no acute distress - EENT Eyes: Present: PERRL, EOM intact ENT: hearing intact, clear oral mucosa - Neck Neck: Present: supple, normal ROM - Respiratory Respiratory effort: normal - Abdominal Male genitourinary: Present: deferred - Integumentary Integumentary: Present: clear, warm Plan Care Plan Goals: Goals: Maintain good and stable mental health. Plan of Treatment: The patient should be compliant with medications, not to use drugs and not to drink alcohol. The patient understands that if suicidal ideas, homicidal ideas, or any endangering thoughts arise, the patient should immediately seek for emergent a ssistance including but not limited to crisis hot line and emergency room. Follow up with outpatient Psychiatrist and PCP within 7 - 14 days of discharge. Follow up with: PRIMARY CARE,MD [Primary Care Provider] - 7 Days Prescriptions: traZODone [Desyrel] 50 mg PO QHS #30 tablet clonazePAM [KlonoPIN] 0.5 mg PO QAM #10 tablet risperiDONE [RisperDAL] 0.5 mg PO BID #60 tablet OXcarbazepine [Trileptal] 300 mg PO BID #60 tablet Sertraline [Zoloft] 200 mg PO DAILY #30 tablet
[2020-08-13 09:34] VITALS: BP 150/79
[2020-08-13] MEDS: amLODIPine 10 MG TAB PO SCH (09:35)
[2020-08-13] MEDS: risperiDONE 0.25 MG TAB PO SCH (09:37)
[2020-08-13] MEDS: PROPRANOLOL 10 MG TAB PO SCH (09:37)
[2020-08-13] MEDS: clonazePAM 0.5 MG TAB PO SCH (09:38)
[2020-08-13] MEDS: SERTRALINE 100 MG TAB PO SCH (09:38)
[2020-08-13] MEDS: metFORMIN 500 MG TAB PO SCH ×2 (09:38→16:00)
[2020-08-13 09:50] LABS: Blood Urea Nitrogen 9 mg/dL (9-20); Calcium 9.3 mg/dL (8.4-10.2); Hemolysis Index 7
[2020-08-13 09:51] LABS: BUN/Creatinine Ratio 15
[2020-08-13] MEDS: OXcarbazepine 300 MG TAB PO SCH (15:57)
== END 2020-08-13 17:10 | disposition home or self-care (01) | DRG 885 ==
LOC: 3A 21:00 → UNDOADMIN 21:00 → 5A 08-07 17:41
PROVIDERS: ADMIT Psychiatry & Neurology Psychiatry; ATTEND Psychiatry & Neurology Psychiatry
DX: F33.9 Major depressive disorder, recurrent, unspecified (principal); R45.851 Suicidal ideations; F25.0 Schizoaffective disorder, bipolar type; I10 Essential (primary) hypertension; E11.9 Type 2 diabetes mellitus without complications; J44.9 Chronic obstructive pulmonary disease, unspecified; E87.6 Hypokalemia
CPT/HCPCS: 36415; 80048; 80053; 80061; 82962; 83036; 84443; 85025; G0378; J1630; J2060